=== PATIENT | male | born 1990 | race Caucasian/White ===

== ENCOUNTER 2022-07-16 15:32 | Emergency (ER) | payer OTHER ==
[~2022-07-16 15:32] MED LIST: ERYTHROMYCIN OP1 GM OS
[2022-07-16 15:57] LABS: HEMOGLOBIN 15.4 gm/dl (14.0-17.5); RED BLOOD COUNT 5.46 M/UL (4.20-5.50)
[2022-07-16 16:23] LABS: BUN/CREATININE RATIO 14 (0-10)
[2022-07-16] MEDS ORDERED: VIBRAMYCIN100 MG PO (18:26)
== END 2022-07-16 21:10 | disposition home or self-care (01) ==
LOC: ER1 15:32
PROVIDERS: Physician Assistant
DX: J18.9 Pneumonia, unspecified organism (principal); R40.2410 Glasgow coma scale score 13-15, unspecified time; Z20.822 Contact with and (suspected) exposure to COVID-19
CPT/HCPCS: 71045; 80053; 82550; 82553; 84484; 85025; 85379; 99285; U0002